=== PATIENT | female | born 1975 | race Hispanic/Latino ===

== ENCOUNTER 2020-11-06 17:36 | Observation (INO) | payer OTHER, SELFPAY ==
[2020-11-06 18:05] LABS: #Basophils 0.1 thou/uL (0.0-0.2); #Eosinphils 0.3 thou/uL (0.0-0.7); #Monocytes 0.4 thou/uL (0.11-0.59); #Neutrophils 4.7 thou/uL (1.40-6.50); %Basophils 1.1 % (0.0-1.0); %Eosinophils 4.3 % (0.0-10.0); %Monocytes 5.4 % (0.0-10.0); %Neutrophils 73.2 % (42.0-75.0); Hemoglobin 14.3 g/dL (12.0-16.0); Mean Corpuscular HGB CONC 35.4 g/dL (32.0-36.0); Mean Corpuscular Hemoglobin 32.7 pg (27.0-31.0); Mean Corpuscular Volume 92.4 fL (78.0-98.0); Mean Platelet Volume 8.1 fL (7.4-10.4); Platelet Count 179 thou/uL (130-400); RBC Distribution Width 12.3 % (11.5-14.5); Red Blood Cell (RBC) Count 4.37 mill/uL (4.20-5.40); White Blood Cell (WBC) Count 6.4 thou/uL (4.8-10.8)
[2020-11-06 18:28] LABS: ALT (SGPT) 319 U/L (8-55); AST (SGOT) 325 U/L (5-34); Albumin 4.2 g/dL (3.5-5.0); Alkaline Phosphatase 212 U/L (40-110); Anion Gap 14 mmol/L (10-20); BUN (Urea Nitrogen) 7 mg/dL (7.0-18.7); Bilirubin, Total 2.8 mg/dL (0.2-1.2); Calc. Creatinine Clearance 0 mL/min (70-130); Calcium 9.3 mg/dL (7.8-10.44); Carbon Dioxide 25 mmol/L (22-29); Chloride 103 mmol/L (98-107); Globulin 4.3 g/dL (2.4-3.5); Glucose 155 mg/dL (70-105); Lipase 7 U/L (8-78); Potassium 3.5 mmol/L (3.5-5.1); Protein, Total 8.5 g/dL (6.0-8.3); Sodium 138 mmol/L (136-145)
--- NOTE | 2020-11-06 19:12 | ULT ---
Sonogram right upper quadrant HISTORY: Abdominal pain. Abnormal liver function tests. FINDINGS: Shadowing echogenicities within the gallbladder fossa have the appearance of stones in a no ndilated gallbladder. No gallbladder wall thickening or pericholecystic fluid. Patient was reportedly not tender over the gallbladder fossa at the time of the exam. Common duct is 0.2 cm diameter. Liver unremarkable without focal mass or intrahepatic biliary dilatat ion. No free fluid. IMPRESSION : Cholelithiasis. No evidence of acute biliary obstruction.
[2020-11-06] MEDS ORDERED: Ondansetron PF 4 MG/2 ML Vial ONE ×2 (19:25→20:52)
[2020-11-06] MEDS ORDERED: Morphine 4 MG/ML VIAL ONE (19:25)
[2020-11-06] MEDS ORDERED: Piperacillin/Tazobactam 3.375 GM VIAL ONE (19:33)
[2020-11-06 19:47] LABS: BHCG - Serum Negative (NEGATIVE); Pregs Control Background? CLEAR/WHITE (CLR/WHITE); Pregs Control Bar Appear? YES (CONTROL BAR)
[2020-11-06 20:37] LABS: Bacteria/HPF 4+ HPF (None Seen); Bilirubin 1+ (Negative); Blood, Urine 1+ (Negative); Clarity Turbid (Clear); Glucose, Urine (Dipstick) Normal (Negative); Ketone, Urine Trace mg/dL (Negative); Leukocyte 250 Leu/uL (Negative); Nitrite 2+ (Negative); Protein, Urine (Dipstick) 30 mg/dL (Neg-Trace); Specific Gravity, Urine 1.027 (1.002-1.036); Urobilinogen Greater than 12 mg/dL (Less than 2); WBC/HPF 21-50 HPF (0-3)
[2020-11-06 22:58] LABS: SARS-CoV-2 NAA Rapid Test Not Detected (NotDetected)
[2020-11-06] MEDS ORDERED: Morphine 4 MG/ML VIAL SLOW IVP PRN (23:40)
[2020-11-06] MEDS ORDERED: Ondansetron ODT 4 MG TAB SL PRN (23:45)
[2020-11-06] MEDS ORDERED: Sodium Chloride 0.9% 1,000 ML IV SCH (23:45)
[2020-11-06] MEDS ORDERED: Ondansetron PF 4 MG/2 ML Vial IVP PRN (23:45)
[2020-11-07] MEDS ORDERED: Morphine 4 MG/ML VIAL ONE (00:22)
[2020-11-07] MEDS ORDERED: Piperacillin/Tazobactam 3.375 GM in Sodium Chloride 0.9% 100 ML IVPB SCH (04:00)
[2020-11-07] MEDS ORDERED: Piperacillin/Tazobactam 3.375 GM VIAL ONE (04:15)
[2020-11-07 04:41] LABS: #Lymphocytes 0.9 thou/uL (1.20-3.40); #Monocytes 0.5 thou/uL (0.11-0.59); #Neutrophils 10.5 thou/uL (1.40-6.50); %Basophils 0.1 % (0.0-1.0); %Eosinophils 0.1 % (0.0-10.0); %Lymphocytes 7.9 % (21.0-51.0); %Monocytes 4.4 % (0.0-10.0); %Neutrophils 87.6 % (42.0-75.0); Hemoglobin 12.4 g/dL (12.0-16.0); Mean Corpuscular HGB CONC 33.3 g/dL (32.0-36.0); Mean Corpuscular Hemoglobin 30.3 pg (27.0-31.0); Mean Corpuscular Volume 91.2 fL (78.0-98.0); Mean Platelet Volume 8.3 fL (7.4-10.4); Platelet Count 177 thou/uL (130-400); RBC Distribution Width 12.4 % (11.5-14.5); Red Blood Cell (RBC) Count 4.08 mill/uL (4.20-5.40)
[2020-11-07 05:04] LABS: ALT (SGPT) 293 U/L (8-55); AST (SGOT) 213 U/L (5-34); Albumin 3.6 g/dL (3.5-5.0); Alkaline Phosphatase 179 U/L (40-110); Anion Gap 9 mmol/L (10-20); BUN (Urea Nitrogen) 7 mg/dL (7.0-18.7); Bilirubin, Total 1.3 mg/dL (0.2-1.2); Calc. Creatinine Clearance 0 mL/min (70-130); Calcium 8.6 mg/dL (7.8-10.44); Carbon Dioxide 25 mmol/L (22-29); Chloride 108 mmol/L (98-107); Globulin 3.7 g/dL (2.4-3.5); Glucose 175 mg/dL (70-105); Potassium 3.8 mmol/L (3.5-5.1); Protein, Total 7.3 g/dL (6.0-8.3); Sodium 138 mmol/L (136-145)
[2020-11-07 08:55] VITALS: BP 174/98; TEMP 98.3
--- NOTE | 2020-11-07 11:10 | HP ---
CHIEF COMPLAINT: Midepigastric abdominal pain. HISTORY OF PRESENT ILLNESS: The patient is a 44-year-old female with a 2-week history of intermittent right upper quadrant epigastric pain, became more consistent over the last week and severe over the last 2 days associated with nausea and vomiting. No fever or chills. She has reported dark urine. Last meal was yesterday. PAST MEDICAL HISTORY: Morbid obesity. PAST SURGICAL HISTORY: None. MEDICATIONS: No medications. ALLERGIES: NO KNOWN DRUG ALLERGIES. SOCIAL HISTORY: She is a aguirre. She is single. No tobacco or alcohol. FAMILY HISTORY: Gallbladder disease and diabetes. PHYSICAL EXAMINATION: VITAL SIGNS: Temperature 98.3, pulse 71, and blood pressure 170/98. GENERAL: She is an obese female, lying still in no apparent distress. HEENT: No jaundice. LUNGS: Clear. HEART: Regular rate and rhythm. ABDOMEN: Obese, soft. Mild tenderness in the right upper quadrant. No palpable mass. EXTREMITIES: Unremarkable. LABORATORY DATA: Her white count is 12, H and H 12 and 37, platelet count 177. Her electrolytes are fine, but her glucose was elevated at 175. Her bilirubin is 1.3, which is down from 2.8, AST 213, ALT 293, alkaline phosphatase 179. Lipase was negative. HCG negative. COVID test negative. Ultrasound shows cholelithiasis with a normal diameter common bile duct. ASSESSMENT: Acute cholecystitis with elevated liver functions. PLAN: Laparoscopic cholecystectomy with cholangiogram. CONSENT: I have discussed planned procedure as well as risk of bleeding, infection, injury to bile duct, injury to bowel, need to open. She understands and gives informed consent. Job ID: [id number]
[2020-11-07] MEDS ORDERED: EPINEPHrine 1 MG/ML AMP ONE ×2 (12:14→13:21)
[2020-11-07] MEDS ORDERED: Bupivacaine 0.25% HCL 30 ML VIAL ONE ×2 (12:14→13:21)
[2020-11-07] MEDS ORDERED: Midazolam HCl 2 mg/2 ml Vial ONE (13:05)
[2020-11-07] MEDS ORDERED: Fentanyl 100 MCG/2 ML VIAL ONE (13:05)
[2020-11-07] MEDS ORDERED: PROPOFOL 200 MG/20 ML VIAL ONE (16:02)
[2020-11-07] MEDS ORDERED: Esmolol 100 MG/10 ML VIAL ONE (16:02)
[2020-11-07] MEDS ORDERED: Lidocaine 1% PF 5 ML VIAL ONE (16:02)
[2020-11-07] MEDS ORDERED: Ondansetron PF 4 MG/2 ML Vial ONE (16:02)
[2020-11-07] MEDS ORDERED: Glycopyrrolate 0.2 MG/ML 5 ML SYRINGE ONE (16:02)
[2020-11-07] MEDS ORDERED: Succinylcholine 200 MG/10 ml SYRINGE FS ONE (16:02)
[2020-11-07] MEDS ORDERED: Dexamethasone 20 MG/5 ML VIAL ONE (16:02)
[2020-11-07] MEDS ORDERED: Rocuronium Bromide 10 MG/ML (10ML VIAL) ONE (16:02)
--- NOTE | 2020-11-07 17:22 | RAD ---
INTRAOPERATIVE CHOLANGIOGRAM: 11/07/20 PROVIDED CLINICAL HISTORY: Cholecystectomy. FINDINGS: Static spot fluoroscopic images of the right upper quadrant demonstrate opacification of the common d uct, emptying into the duodenum without evidence for filling defect or dilatation. IMPRESSION: As above. POS: LAUREN
--- NOTE | 2020-11-08 07:27 | OP ---
DATE OF PROCEDURE: 11/07/2020 PREOPERATIVE DIAGNOSIS: Acute cholecystitis with elevated liver functions. PROCEDURE PERFORMED: Laparoscopic cholecystectomy with cholangiogram. INDICATIONS: A 44-year-old female who reports a couple-week history of intermittent right upper quadrant pain, worse over the last couple days, constant in nature. Ultrasound showed cholelithiasis. Also had elevated liver functions. FINDINGS: Very thickened gallbladder wall. Gallbladder filled with pus as well as very large gallstones, some of which the size of golf balls. Cholangiogram negative. DESCRIPTION OF PROCEDURE: After informed consent was obtained, the patient was taken to the operating room, given general endotracheal anesthesia, placed in supine position. Abdomen was prepped and draped in usual fashion. Local anesthesia was infiltrated subcutaneously and deep. An upper midline incision was performed. Subcu divided sharply. The fascia was grasped, and 2 stay sutures of 0 Vicryl placed through each side of midline. The patient was very, very obese with a BMI of 58, making it very difficult. Incision made in the fascia and digital palpation revealed no local adhesions. A blunt 12-mm trocar inserted. Pneumoperitoneum was created to a pressure of 15 mmHg. A 0-degree laparoscope inserted under direct vision, three 5-mm ports were placed subcostally. Gallbladder grasped and advanced superiorly. I was able to dissect the peritoneum to reveal the cystic duct and artery. A clip was placed at the base of the gallbladder. An intraoperative cholangiogram was performed. This showed free flow in the duodenum and no filling defects. The cystic duct was triply ligated with hemoclips and divided. The artery triply ligated with hemoclips and divided. The gallbladder removed from its fossa utilizing electrocautery. However, the posterior wall was necrotic, so I had to put an endosac in to retrieve some of these large stones. They were placed in the endosac. Eventually, I was able to get the gallbladder removed and placed it in the endosac, removed the gallbladder and contents through the endosac. Prior to dissection I had to aspirate the gallbladder and there was like 20 mL of this thick purulent fluid that was sent for culture. Hemostasis assured with electrocautery as well as Trung powder. A drain was placed and brought out through the lateral-most incision. Hemostasis was assured. The fascia closed with interrupted 0 Vicryl suture. The skin closed with interrupted 4-0 Rapide. Dermabond applied. The patient tolerated the procedure well, transferred to Recovery in good condition. Sponge and needle count verified correct x2. Job ID: [id number]
== END 2020-11-07 18:45 | disposition home or self-care (01) ==
LOC: ERS 17:36 → ERHOLD 19:38
PROVIDERS: ADMIT Surgery; ATTEND Surgery
PROC: 0FT44ZZ Resection of Gallbladder, Percutaneous Endoscopic Approach (ICD-10-PCS; principal; 2020-11-07)
PROC: BF121ZZ Fluoroscopy of Gallbladder using Low Osmolar Contrast (ICD-10-PCS; 2020-11-07)
DX: K80.12 Calculus of gallbladder with acute and chronic cholecystitis without obstruction (principal); R79.89 Other specified abnormal findings of blood chemistry; E66.01 Morbid (severe) obesity due to excess calories; Z68.43 Body mass index [BMI] 50.0-59.9, adult; Z20.822 Contact with and (suspected) exposure to COVID-19
CPT/HCPCS: 36415; 47532; 76705; 80053; 81003; 81015; 83690; 84703; 85025; 87070; 87077; 87186; 87205; 88304; 94760; 96365; 96366; 96375; 96376; G0378; J0171; J1100; J2250; J2270; J2405; J2543; J2704; J3010; J3490; S0020; U0002